=== PATIENT | female | born 1975 | race Hispanic/Latino ===

== ENCOUNTER 2024-05-27 20:13 | Emergency (ER) | payer OTHER ==
[~2024-05-27] VITALS: Ht 149.9 cm; Wt 72.6 kg
[~2024-05-27 20:13] MED LIST: CEPHALEXIN500 M1 PO; DOCUSATE SODIU100 MG PO; FEROSUL325 MG PO; GUAIFENESIN-DM 15 ML PO; MAALOX MAXIMUM355 ML PO; MELATONIN3 MG PO; MIRALAX17 GM PO; MULTIVITAMINS1 EAC6 PO; ONDANSETRON ODT4 MG PO; RETACRIT10000 UNIT SC; VITAMIN C 500500 MG PO
[2024-05-27 20:16] VITALS: TEMP 99
[2024-05-27 20:30] LABS: BASOPHILS % 0.2 % (0.0-1.0); EOSINOPHILS % 0.5 % (0.0-6.0); HEMATOCRIT 37.4 % (34.2-44.1); HEMOGLOBIN 11.7 g/dL (12.0-16.0); LYMPHOCYTES # (AUTO) 2.3 (1.0-3.2); LYMPHOCYTES % 28.1 % (18.0-39.1); MEAN CORPUSCULAR HEMOGLOBIN 26.7 pg (28-32); MEAN CORPUSCULAR HGB CONC 31.3 g/dL (31-35); MEAN CORPUSCULAR VOLUME 85.4 fL (81-99); MONOCYTES # (AUTO) 0.4 (0.2-0.8); MONOCYTES % 5.5 % (4.4-11.3); NEUTROPHILS # (AUTO) 5.3 (2.1-6.9); NEUTROPHILS % 65.5 % (38.7-80.0); PLATELET COUNT 325 x10e3/uL (140-360); RED BLOOD COUNT 4.38 x10e6/uL (3.6-5.1); RED CELL DISTRIBUTION WIDTH 13.8 % (11.7-14.4); WHITE BLOOD COUNT 8.04 x10e3/uL (4.8-10.8)
[2024-05-27 20:40] LABS: CLARITY,URINE CLOUDY (CLEAR); COLOR,URINE YELLOW (YELLOW); LEUKOCYTE ESTERASE ,URINE LARGE (NEGATIVE); PH,URINE 7.5 (5 - 7)
[2024-05-27 20:41] LABS: BILIRUBIN,URINE NEGATIVE (NEGATIVE); GLUCOSE, URINE 500 (NEGATIVE); KETONES,URINE NEGATIVE (NEGATIVE); NITRITE,URINE NEGATIVE (NEGATIVE); PROTEIN,URINE DIPSTICK 2+ (NEGATIVE); URINE UROBILINOGEN 0.2 mg/dL (0.2 - 1)
[2024-05-27 20:44] LABS: BACTERIA,URINE MODERATE /HPF; EPITHELIAL CELLS,URINE RARE /LPF; WBC,URINE (MAN) >50 /HPF (0-5)
[2024-05-27 20:50] LABS: ALBUMIN 4.1 g/dL (3.5-5.0); ALBUMIN/GLOBULIN RATIO 0.9 (0.8-2.0); ANION GAP 15.9 mmol/L (8-16); BILIRUBIN,TOTAL 0.4 mg/dL (0.2-1.2); CREATININE, SERUM 1.2 mg/dL (0.57-1.11); POTASSIUM 3.9 mmol/L (3.5-5.1); TOTAL PROTEIN 8.7 g/dL (6.5-8.1)
[2024-05-27] MEDS: SODIUM CHLORIDE 0.9% 1000ML 1,000 ML IV ONE (20:57)
[2024-05-27] MEDS: ONDANSETRON HCL INJ 2MG/ML 2ML 2 MG/ML VIAL IV STA (20:57)
[2024-05-27 21:02] VITALS: PULSE 81; RESP 18
[2024-05-27] MEDS ORDERED: CEFDINIR300 MG PO (22:01)
[2024-05-27] MEDS ORDERED: ONDANSETRON ODT4 MG SL (22:01)
[2024-05-27 22:07] VITALS: BP 153/84; PULSE 95; RESP 17; TEMP 98.5; O2SAT 99
== END 2024-05-27 22:21 | disposition home or self-care (01) ==
LOC: ER 20:16
DX: R50.9 Fever, unspecified (principal); N39.0 Urinary tract infection, site not specified; R11.2 Nausea with vomiting, unspecified; E11.65 Type 2 diabetes mellitus with hyperglycemia
CPT/HCPCS: 36415; 80053; 81001; 83690; 85025; 99283; J0696; J2405; J2470; J7030